=== PATIENT | female | born 1975 | race Hispanic/Latino ===

== ENCOUNTER 2023-01-20 07:46 | Day surgery (SDC) | payer SELFPAY ==
[2023-01-18 12:35] VITALS: BMI 45.7
[~2023-01-20 07:46] MED LIST: Bupivacaine HCl 0.5%/Epinephrine 1:200,000/PF 30 ml Vial ONE
[2023-01-20] MEDS ORDERED: SUGAMMADEX SODIUM 200 MG/2 ML VIAL ONE (08:40)
[2023-01-20] MEDS ORDERED: Propofol 1,000 MG/100 ML VIAL IV ONE (08:41)
[2023-01-20] MEDS ORDERED: Esmolol 100 MG/10 ML VIAL ONE (08:42)
[2023-01-20] MEDS ORDERED: Fentanyl 100 MCG/2 ML VIAL ONE ×2 (08:42→10:08)
[2023-01-20] MEDS ORDERED: Ondansetron PF 4 MG/2 ML Vial ONE ×2 (08:42→10:35)
[2023-01-20] MEDS ORDERED: Rocuronium Bromide 10 MG/ML (10ML VIAL) ONE (08:42)
[2023-01-20] MEDS ORDERED: Midazolam HCl 2 mg/2 ml Vial ONE (08:42)
[2023-01-20] MEDS ORDERED: CEFAZOLIN 2 GM VIAL ONE (08:42)
[2023-01-20] MEDS ORDERED: Lidocaine 1% PF 5 ML VIAL ONE (08:42)
[2023-01-20] MEDS ORDERED: Dexamethasone 4 mg/ml Vial ONE (08:42)
[2023-01-20] MEDS ORDERED: Ketorolac Tromethamine 30 MG/ML VIAL ONE (09:59)
[2023-01-20] MEDS ORDERED: HYDROmorphone 0.5 MG/0.5 ML SYRINGE ONE ×2 (10:18→10:35)
[2023-01-20] MEDS ORDERED: HYDROcodone/Acetaminophen 5/325 mg Tablet PO PRN ×2 (10:37)
[2023-01-20] MEDS ORDERED: HYDROcodone/Acetaminophen 5/325 mg Tablet ONE ×2 (11:40→12:19)
== END 2023-01-20 12:50 | disposition home or self-care (01) ==
LOC: CSHSDC 07:46
PROVIDERS: ATTEND Surgery
PROC: 0WQF4ZZ Repair Abdominal Wall, Percutaneous Endoscopic Approach (ICD-10-PCS; principal; 2023-01-20)
DX: K43.0 Incisional hernia with obstruction, without gangrene (principal); E66.01 Morbid (severe) obesity due to excess calories; E11.9 Type 2 diabetes mellitus without complications; Z90.49 Acquired absence of other specified parts of digestive tract; Z68.42 Body mass index [BMI] 45.0-49.9, adult; Z88.8 Allergy status to other drugs, medicaments and biological substances; Z79.899 Other long term (current) drug therapy
CPT/HCPCS: C1713; J1100; J1170; J1885; J2250; J2405; J2704; J3010

== ENCOUNTER 2024-09-23 11:59 | Outpatient (CLI) | payer SELFPAY | END 2024-09-23 12:00 | disposition home or self-care (01) | LOC: CSHRAD 11:59 | PROVIDERS: ATTEND Nurse Practitioner Family | DX: R05.1 Acute cough (principal) | CPT/HCPCS: 71046 ==

== ENCOUNTER 2025-10-30 23:09 | Emergency (ER) | payer SELFPAY ==
[2025-10-30] MEDS ORDERED: Ondansetron PF 4 MG/2 ML Vial ONE (23:37)
[2025-10-31 00:25] LABS: ALT (SGPT) Less than 4 U/L (Less than 34); AST (SGOT) 23 U/L (11-34); Albumin 3.3 g/dL (3.1-4.5); Alkaline Phosphatase 106 U/L (40-110); Anion Gap 14 mmol/L (10-20); BUN (Urea Nitrogen) 14 mg/dL (7.0-18.7); Bilirubin, Total 1.1 mg/dL (0.3-1.2); Calc. Creatinine Clearance 0 mL/min (70-130); Calcium 9.0 mg/dL (7.8-10.44); Carbon Dioxide 19 mmol/L (22-29); Chloride 106 mmol/L (98-107); Globulin 3.7 g/dL (2.4-3.5); Glucose 117 mg/dL (70-105); Lipase 13 U/L (8-78); Magnesium 1.9 mg/dL (1.6-2.6); Potassium 3.4 mmol/L (3.5-5.1); Sodium 136 mmol/L (136-145)
[2025-10-31 00:28] LABS: BHCG - Serum Negative (NEGATIVE)
[2025-10-31 00:29] LABS: Pregs Control Background? CLEAR/WHITE (CLR/WHITE); Pregs Control Bar Appear? YES (CONTROL BAR)
[2025-10-31 00:31] LABS: Troponin I 0.015 ng/mL (< 0.028)
[2025-10-31] MEDS ORDERED: Droperidol 5 MG/2 ML VIAL ONE (00:58)
[2025-10-31 00:59] LABS: Hematocrit 39.0 % (34.9-44.5); Hemoglobin 12.6 g/dL (12.0-15.5); Mean Corpuscular Hemoglobin 25.3 pg (27.0-33.0); Mean Corpuscular Volume 78.3 fL (81.6-98.3); Platelet Count 327 10x3/uL (150-450); Red Blood Cell (RBC) Count 4.98 10x6/uL (3.90-5.03); White Blood Cell (WBC) Count 21.54 10x3/uL (3.5-10.5)
[2025-10-31 01:07] LABS: MDiff Complete? YES
[2025-10-31 01:09] LABS: Cocaine Metabolite Screen Negative (Negative); THC/Cannabinoid Screen Negative (Negative); Tricyclic Screen Negative (Negative)
[2025-10-31 01:11] LABS: Glucose, Urine (Dipstick) Normal (Negative); Leukocyte 100 (Negative); Protein, Urine (Dipstick) 100 mg/dl (Neg-Trace); Specific Gravity, Urine 1.025 (1.005-1.030)
[2025-10-31 01:16] LABS: RBC/HPF Greater than 50 HPF (0-3)
[2025-10-31 01:17] LABS: Bacteria/HPF 2+ HPF (None Seen); CAUTI Indications for Culture Pelvic or flank pain
[2025-10-31 01:18] LABS: Urine Culture Reflex No No
[2025-10-31] MEDS ORDERED: Famotidine/PF 20 mg/2ml Vial ONE (03:05)
[2025-10-31] MEDS ORDERED: Lidocaine Viscous Sol 2% 15 ml UD Cup ONE (03:05)
[2025-10-31] MEDS ORDERED: Mag-Al 1200 mg/1200 mg/30 ML UDCUP ONE (03:05)
[2025-10-31] MEDS ORDERED: Dicyclomine 20 MG TAB ONE (03:06)
[2025-10-31] MEDS ORDERED: cefTRIAXone (ROCEPHIN) 2 GM VIAL ONE (05:22)
== END 2025-10-31 05:10 | disposition home or self-care (01) ==
LOC: CSHERS 23:09
DX: K52.9 Noninfective gastroenteritis and colitis, unspecified (principal); N83.201 Unspecified ovarian cyst, right side; N39.0 Urinary tract infection, site not specified; E03.9 Hypothyroidism, unspecified; E66.9 Obesity, unspecified; Z79.890 Hormone replacement therapy
CPT/HCPCS: 71045; 74177; 76856; 80053; 80306; 81001; 83605; 83690; 83735; 84484; 84703; 85025; 87086; 93005; 93976; 96361; 96365; 96375; J0696; J1308; J1790; J2270; J2405